=== PATIENT | female | born 2005 | race Caucasian/White ===

== ENCOUNTER 2023-10-17 15:55 | Emergency (ER) | payer BC, OTHER ==
[~2023-10-17 15:55] MED LIST: Iopamidol 370 76% 100 ML VIAL ONE
[2023-10-17 16:28] LABS: Bilirubin Neg (Negative); Blood, Urine Negative (Negative); Clarity Clear (Clear); Glucose, Urine (Dipstick) 250 mg/dL (Negative); Ketone, Urine Negative (Negative); Leukocyte 25 (Negative); Nitrite Negative (Negative); Protein, Urine (Dipstick) Negative (Neg-Trace); Urobilinogen Normal mg/dL (Less than 2)
[2023-10-17 16:37] LABS: CAUTI Indications for Culture Pregnancy; RBC/HPF 0-3 HPF (0-3); Squamous Epithelial 0-3 HPF (0-3); WBC/HPF 0-3 HPF (0-3)
[2023-10-17 16:38] LABS: Bacteria/HPF Rare-Few HPF (None Seen)
[2023-10-17 16:39] LABS: Urine Culture Reflex Yes Yes
[2023-10-17 16:49] LABS: #Basophils 0.02 10x3/uL (0.0-0.2); #Eosinphils 0.04 10x3/uL (0.0-0.5); #Monocytes 0.55 10x3/uL (0.0-1.1); #Neutrophils 8.91 10x3/uL (1.5-8.4); %Basophils 0.2 % (0.0-2.0); %Eosinophils 0.4 % (0.0-6.0); %Lymphocytes 15.1 % (18.0-47.0); %Monocytes 4.9 % (0.0-10.0); %Neutrophils 78.8 % (40.0-75.0); Hematocrit 35.6 % (34.9-44.5); Hemoglobin 12.7 g/dL (12.0-15.5); Mean Corpuscular HGB CONC 35.7 g/dL (32.0-36.0); Mean Corpuscular Hemoglobin 30.6 pg (27.0-33.0); Mean Corpuscular Volume 85.8 fL (81.6-98.3); Mean Platelet Volume 11.4 fL (7.4-10.4); Platelet Count 200 10x3/uL (150-450); RBC Distribution Width 13.4 % (11.5-14.5); Red Blood Cell (RBC) Count 4.15 10x6/uL (3.90-5.03); White Blood Cell (WBC) Count 11.3 10x3/uL (3.5-10.5)
[2023-10-17 17:13] LABS: ALT (SGPT) 9 U/L (8-55); AST (SGOT) 20 U/L (5-34); Albumin 2.9 g/dL (3.5-5.0); Alkaline Phosphatase 102 U/L (40-100); Anion Gap 10 mmol/L (10-20); BUN (Urea Nitrogen) 5 mg/dL (7.0-18.7); Bilirubin, Total 0.4 mg/dL (0.2-1.2); Calc. Creatinine Clearance 0 mL/min (70-130); Carbon Dioxide 23 mmol/L (22-29); Chloride 106 mmol/L (98-107); Estimated GFR 130; Globulin 2.9 g/dL (2.4-3.5); Glucose 74 mg/dL (70-105); Potassium 3.6 mmol/L (3.5-5.1); Protein, Total 5.8 g/dL (6.0-8.3); Sodium 135 mmol/L (136-145)
[2023-10-17] MEDS ORDERED: Acetaminophen 500 MG TAB ONE (18:16)
== END 2023-10-17 20:26 | disposition home or self-care (01) ==
LOC: CSHERS 15:55
DX: O99.891 Other specified diseases and conditions complicating pregnancy (principal); H47.10 Unspecified papilledema; Z3A.36 36 weeks gestation of pregnancy
CPT/HCPCS: 36415; 70460; 80053; 81001; 85025; 87086; Q9967

== ENCOUNTER 2023-11-05 07:11 | Inpatient (IN) | payer BC, OTHER ==
[2023-11-05 08:27] VITALS: BMI 26.2
[2023-11-05] MEDS ORDERED: hydrALAZINE 20 MG/ML VIAL SLOW IVP PRN (10:28)
[2023-11-05] MEDS ORDERED: Promethazine HCl 25 MG/ML VIAL IM PRN ×2 (10:28→13:55)
[2023-11-05] MEDS ORDERED: Misoprostol 200 MCG TAB PR PRN (10:28)
[2023-11-05] MEDS ORDERED: Diphenoxylate HCl/Atropine Tablet PO PRN (10:28)
[2023-11-05] MEDS ORDERED: fentaNYL 50 mcg/mL 1 mL Vial SLOW IVP PRN (10:28)
[2023-11-05] MEDS ORDERED: Carboprost 250 MCG/ML AMP IM PRN (10:28)
[2023-11-05] MEDS ORDERED: Methylergonovine 0.2 MG/ML VIAL IM PRN (10:28)
[2023-11-05] MEDS ORDERED: Lidocaine 1% (PF) 30 ML VIAL SC PRN (10:28)
[2023-11-05] MEDS ORDERED: Butorphanol Tartrate 1 MG/ML VIAL SLOW IVP PRN (10:28)
[2023-11-05] MEDS ORDERED: Ibuprofen 800 MG TAB PO PRN (10:28)
[2023-11-05] MEDS ORDERED: Acetaminophen 500 MG TAB PO PRN (10:28)
[2023-11-05] MEDS ORDERED: Oxytocin 30 units/NS 500 ML 500 ML IV SCH ×3 (10:30)
[2023-11-05] MEDS ORDERED: Lactated Ringer's 1,000 ML IV SCH (10:30)
[2023-11-05] MEDS ORDERED: Penicillin G Potassium 5 MILL.UNITS in Sodium Chloride 0.9% 100 ML IVPB SCH (10:30)
[2023-11-05 11:23] LABS: Hematocrit 38.4 % (34.9-44.5); Hemoglobin 13.6 g/dL (12.0-15.5); Mean Corpuscular HGB CONC 35.4 g/dL (32.0-36.0); Mean Corpuscular Hemoglobin 30.2 pg (27.0-33.0); Mean Corpuscular Volume 85.3 fL (81.6-98.3); Mean Platelet Volume 11.8 fL (7.4-10.4); Platelet Count 208 10x3/uL (150-450); RBC Distribution Width 13.4 % (11.5-14.5); White Blood Cell (WBC) Count 13.9 10x3/uL (3.5-10.5)
[2023-11-05 12:00] LABS: Syphilis Antibody Nonreactive (Nonreactive); Syphilis Antibody Index 0.03 S/CO (<1.00 Non-Reactive)
[2023-11-05 12:01] LABS: HBsAg Index 0.18 S/CO (0-0.99); Hep B Surf Ag - L&D Non-Reactive S/CO (NonReactive)
[2023-11-05] MEDS: fentaNYL/Ropivacaine Epidural 100 ML ONE (13:48)
[2023-11-05] MEDS ORDERED: Naloxone HCl 0.4 mg/ml Vial IVP PRN ×2 (13:55)
[2023-11-05] MEDS ORDERED: ePHEDrine Sulfate 50 MG/10 ML VIAL SLOW IVP PRN (13:55)
[2023-11-05] MEDS ORDERED: Moisturizing Cream (Eucerin) 113 GM JAR TOP PRN (13:55)
[2023-11-05] MEDS ORDERED: Acetaminophen 325 MG TAB PO PRN (13:55)
[2023-11-05] MEDS ORDERED: Lactated Ringer's 500 ML IV PRN (13:55)
[2023-11-05] MEDS ORDERED: Ondansetron PF 4 MG/2 ML Vial IVP PRN (13:55)
[2023-11-05] MEDS ORDERED: diphenhydrAMINE 50 MG/ML VIAL IVP PRN (13:55)
[2023-11-05] MEDS ORDERED: Communication Order-Pharmacy FS SCH (14:00)
[2023-11-05] MEDS ORDERED: Penicillin G 2.5 MILL.units 2.5 MILL.UNITS in Premix 1 BAG IVPB SCH (14:30)
[2023-11-05] MEDS: fentaNYL 2 mcg/Ropivacaine 0.2% Epidural 100 ML CADD EPIDURAL SCH (20:19)
[2023-11-05] MEDS: Ondansetron PF 4 MG/2 ML Vial IVP PRN (21:07)
[2023-11-05 21:25] LABS: ALT (SGPT) 14 U/L (8-55); AST (SGOT) 18 U/L (5-34); Albumin 3.2 g/dL (3.5-5.0); Alkaline Phosphatase 126 U/L (40-100); Anion Gap 15 mmol/L (10-20); BUN (Urea Nitrogen) 5 mg/dL (7.0-18.7); Bilirubin, Total 0.7 mg/dL (0.2-1.2); Calc. Creatinine Clearance 142 mL/min (70-130); Carbon Dioxide 21 mmol/L (22-29); Chloride 105 mmol/L (98-107); Estimated GFR 127; Globulin 2.8 g/dL (2.4-3.5); Glucose 88 mg/dL (70-105); Potassium 3.8 mmol/L (3.5-5.1); Sodium 137 mmol/L (136-145)
[2023-11-06] MEDS ORDERED: Lanolin Ointment 7 GM TUBE TOP PRN (03:27)
[2023-11-06] MEDS ORDERED: hydrALAZINE 20 MG/ML VIAL SLOW IVP PRN (03:27)
[2023-11-06] MEDS ORDERED: HYDROcodone/Acetaminophen 5/325 mg Tablet PO PRN ×2 (03:27)
[2023-11-06] MEDS ORDERED: Bisacodyl 10 MG SUPP PR PRN (03:27)
[2023-11-06] MEDS ORDERED: Milk Of Magnesia 30 ML UDCUP PO PRN (03:27)
[2023-11-06] MEDS ORDERED: Misoprostol 200 MCG TAB VAG PRN (03:27)
[2023-11-06] MEDS ORDERED: Benzocaine-Menthol 82.5 ML CAN TOP PRN (03:27)
[2023-11-06] MEDS: Ibuprofen 800 MG TAB PO SCH (05:12)
[2023-11-06] MEDS: Ferrous Sulfate 325 MG TAB PO SCH (08:52)
[2023-11-06] MEDS: Docusate 100 MG CAP PO SCH (08:52)
[2023-11-06] MEDS: Prenatal Vitamin 1 TAB PO SCH (08:52)
[2023-11-07] MEDS: Boostrix 0.5 ML (Tdap) VIAL (>/=7 yrs of age) IM ONE (07:35)
[2023-11-08 07:45] VITALS: BP 114/73; TEMP 98.1
== END 2023-11-08 12:35 | disposition home or self-care (01) | DRG 807 ==
LOC: CSHLD/OP 07:11 → CSHLD 11:28 → CSHPP 11-06 02:50
PROVIDERS: ADMIT Obstetrics & Gynecology; ATTEND Obstetrics & Gynecology
PROC: 10907ZC Drainage of Amniotic Fluid, Therapeutic from Products of Conception, Via Natural or Artificial Opening (ICD-10-PCS; 2023-11-05)
PROC: 10E0XZZ Delivery of Products of Conception, External Approach (ICD-10-PCS; principal; 2023-11-06)
PROC: 0KQM0ZZ Repair Perineum Muscle, Open Approach (ICD-10-PCS; 2023-11-06)
DX: O99.824 Streptococcus B carrier state complicating childbirth (principal); Z37.0 Single live birth; O69.81X0 Labor and delivery complicated by cord around neck, without compression, not applicable or unspecified; Z3A.39 39 weeks gestation of pregnancy; Z79.899 Other long term (current) drug therapy; Z88.2 Allergy status to sulfonamides; O70.1 Second degree perineal laceration during delivery
CPT/HCPCS: 36415; 51702; 80053; 85027; 86780; 86850; 86900; 86901; 87340; 99285; J2405